=== PATIENT | male | born 1960 | race Caucasian/White ===

== ENCOUNTER → 2023-03-17 | Outpatient (CLI) | payer MEDICAID, SELFPAY ==
--- NOTE | 2023-03-17 13:52 | CDU_ITS ---
Reason For Study: Carotid Bruit Rt. Velocities/BP Lt. Velocities/BP Prox CCA 103/25 cm/sec. Prox CCA 120/25 cm/sec. Mid CCA 108/25 cm/sec. Mid CCA 131/32 cm/sec. Dist CCA 105/33 cm/sec. Dist CCA 120/32 cm/sec. Prox ICA 58/15 cm/sec. Prox ICA 96/28 cm/sec. Mid ICA 88/25 cm/sec. Mid ICA 134/41 cm/sec. Dist ICA 86/33 cm/sec. Dist ICA 140/45 cm/sec. Rt. ICA/CCA = 0.8. Lt. ICA/CCA = 1.1. Prox ECA 113/25 cm/sec. Prox ECA 156/25 cm/sec. Rt. Vert. 45/12 cm/sec. Lt. Vert. 86/25 cm/sec. Right Extracranial There is heterogeneous, irregular atherosclerotic plaque noted in the right common carotid artery. There is heterogeneous, smooth atherosclerotic plaque noted in the right internal carotid artery. There is no significant atherosclerotic plaque noted in the right external carotid artery. Antegrade flow is noted in the right vertebral artery. Left Extracranial There is heterogeneous, smooth atherosclerotic plaque noted in the left common carotid artery. There is heterogeneous, irregular atherosclerotic plaque noted in the left internal carotid artery. The left internal carotid artery is very tortuous. There is no significant atherosclerotic plaque noted in the left external carotid artery. Antegrade flow is noted in the left vertebral artery. Procedure Carotid Duplex 23156. This is a Carotid Duplex examination using B-mode, color flow and specral Doppler. Exam performed in department. VL/Carotid Duplex Ultrasound Interpretation Summary Mild (<50%) stenosis right extracranial internal carotid. Moderate (50-69%) stenosis left extracranial internal carotid. Patent and antegrade vertebrals bilaterally. Ordering Physician: Smitha Gross Referring Physician: Renuka Rocha Performed By: Peri Delgado, RDCS, RVT
== END | disposition home or self-care (01) ==
LOC: CVS 13:51
PROVIDERS: PCP Nurse Practitioner Family; Referring Provider Physician Assistant; Visit Provider Physician Assistant
DX: R09.89 Other specified symptoms and signs involving the circulatory and respiratory systems (principal)
CPT/HCPCS: 93880

== ENCOUNTER → 2023-05-26 | Outpatient (CLI) | payer MEDICAID, SELFPAY ==
--- NOTE | 2023-05-26 10:34 | ART_ITS ---
Reason For Study: CLAUDICATION Procedure A bilateral lower extremity continuous wave Doppler with analog waveform analysis,segmental pressures,and ankle brachial indexes with exercise. EXERCISED PT5 MIN @ 2.0 MPH @ 5% INCLINE. @ 1 MIN PT, C/O RT THIGH TIGHTNESS. @ 3;30 MIN, PT C/O BILATERAL THIGH TIGHTNESS. Left Segmental Pressures Left brachial= 125mmHg. Left posterior tibial artery = 150mmHg. Left dorsalis pedis artery = 138mmHg. The left posterior tibial artery waveforms are triphasic. The left dorsalis pedis waveforms are triphasic. Right Segmental Pressures Right brachial= 127mmHg. Right posterior tibial artery = 152mmHg. Right dorsalis pedis artery = 146mmHg. The right posterior tibial artery waveforms are triphasic. The right dorsalis pedis waveforms are triphasic. Indices The right resting ankle brachial index is 1.20. The right ankle brachial index by the posterior tibial artery is 1.20. The right ankle brachial index by the dorsalis pedis is 1.15. The right ankle brachial index by the posterior tibial artery post exercise is 132. The right post exercise ankle brachial index is 1.01. The left resting ankle brachial index is 1.18. The left ankle brachial index by the posterior tibial artery is 1.18. The left ankle brachial index by the dorsalis pedis is 1.09. The left posterior tibial artery index post exercise is 130. The left post exercise ankle brachial index is 0.99. VL/Lower Ext Art Exam w/ Exercise Interpretation Summary Right FELIX 1.2, normal. Doppler/PVR waveforms of the right leg normal at rest. Right lower extremity exhibits normal response to exercise. Left FELIX 1.18, normal. Doppler/PVR waveforms of the left leg normal at rest. Left lower extremity exhibits normal response to exercise. Ordering Physician: Smitha Milton Referring Physician: [employer] Performed By: Cristina Leija RVT, RDCS
== END | disposition home or self-care (01) ==
LOC: CVS 10:33
PROVIDERS: PCP Nurse Practitioner Family; Referring Provider Physician Assistant; Visit Provider Physician Assistant
DX: I73.9 Peripheral vascular disease, unspecified (principal)
CPT/HCPCS: 93924

== ENCOUNTER → 2023-06-12 | Outpatient (CLI) | payer MEDICAID, SELFPAY ==
--- NOTE | 2023-06-12 10:36 | MRI_ITS ---
STUDY: MRI LUMBAR SPINE WITHOUT CONTRAST REASON FOR EXAM: Male, 63 years old. pain TECHNIQUE: Standardized fat and water weighted pulse sequences were obtained in the sagittal and axial planes. COMPARISON: Lumbar spine radiograph May 18, 2023 FINDINGS: T12-L1: Normal endplates. Normal disc height, hydration and morphology. Normal bilateral facet joints. Normal central canal and bilateral lateral recesses. Normal bilateral intervertebral neural foramina. Normal lumbar lordosis. There is no substantial scoliosis. Normal conus medullaris that terminates at the L1 level. L1-2: Normal endplates. Normal disc height, hydration and morphology. Normal bilateral facet joints. Normal central canal and bilateral lateral recesses. Normal bilateral intervertebral neural foramina. L2-3: Normal endplates. Normal disc height, hydration and morphology. Normal bilateral facet joints. Normal central canal and bilateral lateral recesses. Normal bilateral intervertebral neural foramina. L3-4: Normal endplates. Normal disc height, hydration and morphology. Normal bilateral facet joints. Normal central canal and bilateral lateral recesses. Normal bilateral intervertebral neural foramina. L4-5: Normal endplates. Normal disc height, hydration and morphology. Normal bilateral facet joints. Normal central canal and bilateral lateral recesses. Normal bilateral intervertebral neural foramina. L5-S1: Normal endplates. Normal disc height, hydration and morphology. Normal bilateral facet joints. Normal central canal and bilateral lateral recesses. Normal bilateral intervertebral neural foramina. Grade 1 subluxation. Bilateral pars defects. Normal visualized sacral ala. Normal visualized paraspinous soft tissue structures. MRI/Spine Lumbar (Routine) IMPRESSION: Grade 1 spondylolisthesis and spondylolysis L5-S1. Electronically Signed: Fracisco Monroy MD at 16:21 [facility] ,
== END | disposition home or self-care (01) ==
LOC: MRI 09:48
PROVIDERS: PCP Nurse Practitioner Family; Referring Provider Orthopaedic Surgery Orthopaedic Surgery of the Spine; Visit Provider Orthopaedic Surgery Orthopaedic Surgery of the Spine
DX: M43.06 Spondylolysis, lumbar region (principal)
CPT/HCPCS: 72148

== ENCOUNTER 2023-08-03 09:00 | Outpatient (RCR) | payer MEDICAID, SELFPAY ==
--- NOTE | 2023-06-28 09:18 | HP.PTEVAL ---
Patient's Visit Information Visit Information Visit Information: SHAUN HO Jr. is a 63 year old M referred to Physical Therapy by Dr. Cuong Garvin MD with a diagnosis of SPONDYOLISTHESESIS ,LUMBAR REGION ,[place]. Date of Evaluation: 06/28/23 Physical Therapist: Reza Hopkins, PT, Cert MDT, OCS Visit Plan Frequency: 2x /Week Duration: 4 Weeks Plan: PT INTERVETIONS POSTURAL EX'S ,LUMBAR FLEXION ,DLS ,POSTURE/BODY MECHANICS EDUCATION AND MODLITIES Subjective Subjective: This 63 y/o male presents physical therapy with lumbar pain radicular symptoms with left thigh. Patient has lumbar pain for ~ 25 years. Patient has had pain management past . Patient was referred to ortho Spine DR and recommended PT . Symmetrical lumbar anterior thigh .Aggravating factors bending ,walking , lifting and sitting and ADLS. Alleviating heat and TENS. Coughing/sneezing-. Bowel/bladder-. Pain affects sleeping. Patient had MRI and x-rays showed DDD and grade spondylothesis ,spondylolysis L5. Patient has no abnormal night pain. Patient symptoms affects QOL and function. Patient goals no pain. SOCIAL: VOACTION: retired. Pain Bilateral Back: Pain Intensity (Out of 10): 8 Pain Intensity Range: 10 Objective Objective: POSTURE: mild forward posture NEURO: c/o paresthesia/tingling thigh , reflexes L3-4,L4-5,L5-S1 1/3 GAIT: reciprocal pattern SYMMTRIES : align PALAPTION: unremarkable LUMBAR FLEXION: min loss ,extension min loss ,side glides min loss FLEXABILITY: hamstrings MIN MMT; quads/hams 4/5 ,hip flexion 4-/5v ,ankle 5/5 Special Tests L/S Slump test left side: Negative L/S Slump test right side: Negative L/S Left Straight Leg Raise: Negative L/S Right Straight Leg Raise: Negative Lumbar Standing: Flexion - Mechanical Response: No effect Lumbar Standing: Flexion - Symptoms During Testing: No effect Lumbar Standing: Flexion - Symptoms After Testing: No effect Lumbar Standing: Extension - Symptoms During Testing: Increases Lumbar Standing: Extension - Symptoms After Testing: No worse Lumbar Standing: Right Side Glides - Mechanical Response: No effect Lumbar Standing: Right Side [place] - Symptoms During Testing: No effect Lumbar Standing: Right Side [place] - Symptoms After Testing: No effect Lumbar Standing: Left Side [place] - Mechanical Response: No effect Lumbar Standing: Left Side [place] - Symptoms During Testing: No effect Lumbar Standing: Left Side [place] - Symptoms After Testing: No effect Balance/Special Test Scores Oswestry Low Back Score: 30 Goals Goal 1:: Patient to be I with HEP for back Goal Time Frame: 4-6 Weeks Goal 2:: Patient to improve posture/body mechanics 90% of time. Goal Time Frame: 4-6 Weeks Goal 3:: Patient to demonstrate 50% improved function and ADLS with less pain Goal Time Frame: 4-6 Weeks Goal 4:: Patient to improve lumbar ROM for function of recovery to toe shoes Goal Time Frame: 4-6 Weeks Goal 5:: Patient to improve back oswestry score by 5 points to improve QOL Goal Time Frame: 4-6 Weeks Rehabilitation Potential Physical Therapy Diagnosis: This patient has lumbar pain with numbness in anterior thigh with pain with positioning and motion testing thus affects function will benefit from skilled PT Rehabilitation Potential: Good Anticipated Interventions Patient/Client Instruction: Educate patient on: Condition and Plan of Care For the Purpose of:: To decrease pain, To increase ROM, To improve muscle performance and motor function, To improve ability to perform ADL's, To increase tolerance to activity/condition/position, To improve performance and independence with ADL's, To improve ability of physical actions for home/community/work/leisure, To decrease soft tissue restriction, To increase flexibility/ROM and To improve endurance Therapeutic Exercise to Include: Strength training, Power training, Postural training, Flexibilty training, Dynamic Lumbar Stabilization and Kathy Exercises For the Purpose of:: To decrease pain, To increase ROM, To improve muscle performance and motor function, To improve ability to perform ADL's, To increase tolerance to activity/condition/position, To improve ability of physical actions for home/community/work/leisure, To improve health of tissue, To decrease soft tissue restriction and To increase flexibility/ROM TENS: Yes IF ES: Yes Cryotherapy (ice pack, ice massage): Yes Thermo therapy (hot pack): Yes Ultrasound (thermal/non thermal): Yes For the Purpose of:: To decrease pain, To increase ROM, To improve nutrient delivery to tissue, To increase oxygenation perfusion, To improve health of tissue and To decrease soft tissue restriction Text: Thank you for the opportunity to evaluate your patient. For Medicare and Medicare HMO plans, please review the plan of care and approve it. It will need to be FAXED BACK to us at [phone] for Medicare purposes. For Medicare only, by signing this I certify the plan of care. Please let me know if there are questions or concerns regarding this plan of care. Physician Signature: Date:
--- NOTE | 2023-10-30 12:22 | HP.PTDCSUM ---
Discharge Summary D/C summary: It has been my pleasure to treat SHAUN HO Jr. referred by Dr. Cuong Garvin MD, with the diagnosis of SPONDYOLISTHESESIS ,LUMBAR REGION ,[place] for a total of 8 visit(s). Discharge Date: Please see the following information for a summary of their discharge status. Subjective Subjective: Doing okay Oxycodone Pain Bilateral Back: Pain Intensity (Out of 10): 0 Overall Improvement % Improvement: 70 Objective Objective/Function: POSTURE: mild forward posture NEURO: c/o paresthesia/tingling thigh , reflexes L3-4,L4-5,L5-S1 1/3 GAIT: reciprocal pattern SYMMTRIES : align PALAPTION: unremarkable LUMBAR FLEXION: min loss ,extension WFL ,side glides min loss FLEXABILITY: hamstrings MIN MMT; quads/hams 4/5 ,hip flexion 4-/5 ,ankle 5/5 Goals Goal 1:: Patient to be I with HEP for back Goal 2:: Patient to improve posture/body mechanics 90% of time. Goal 3:: Patient to demonstrate 50% improved function and ADLS with less pain Goal 4:: Patient to improve lumbar ROM for function of recovery to toe shoes Goal 5:: Patient to improve back oswestry score by 5 points to improve QOL Plan Plan: RTD D/C Information d/c sentence: If there are questions or concerns regarding this patient's physical therapy, please feel free to call me at [phone]. Thank you for the referral of this patient. Sincerely, Reza Hopkins, PT, Cert MDT, OCS Balance/Gait/Functional tests Balance/Special Test Scores Oswestry Low Back Score: 7 Improvement % Improvement: 70
== END 2023-08-03 19:00 | disposition home or self-care (01) ==
LOC: PT 09:00
PROVIDERS: PCP Nurse Practitioner Family; Visit Provider Orthopaedic Surgery Orthopaedic Surgery of the Spine
DX: M43.16 Spondylolisthesis, lumbar region (principal); G57.12 Meralgia paresthetica, left lower limb
CPT/HCPCS: 97110; 97162; 97530

== ENCOUNTER → 2024-04-22 | Outpatient (CLI) | payer MEDICAID, SELFPAY ==
--- NOTE | 2024-04-22 09:44 | CDU_ITS ---
Reason For Study: Carotid artery stenosis Rt. Velocities/BP Lt. Velocities/BP Prox CCA 83.4/22 cm/sec. Prox CCA 109.1/26.7 cm/sec. Mid CCA 91.9/24.8 cm/sec. Mid CCA 98.1/24.5 cm/sec. Dist CCA 84.4/21.1 cm/sec. Dist CCA 83.9/22.3 cm/sec. Prox ICA 62.6/21.1 cm/sec. Prox ICA 91.2/18.8 cm/sec. Mid ICA 69.2/24.8 cm/sec. Mid ICA 83.9/27.4 cm/sec. Dist ICA 53.2/21.1 cm/sec. Dist ICA 81.5/27.4 cm/sec. Rt. ICA/CCA = 0.75. Lt. ICA/CCA = 0.93. Prox ECA 59.8/11.6 cm/sec. Prox ECA 125.6/24.9 cm/sec. Rt. Vert. 39.4/10.2 cm/sec. Lt. Vert. 45.6/14.5 cm/sec. Right Extracranial There is heterogeneous, irregular atherosclerotic plaque noted in the right common carotid artery. There is heterogeneous, irregular atherosclerotic plaque noted in the right internal carotid artery. There is intimal thickening but no significant atherosclerotic plaque noted in the right external carotid artery. Antegrade flow is noted in the right vertebral artery. Left Extracranial There is homogeneous, smooth atherosclerotic plaque noted in the left common carotid artery. There is heterogeneous, irregular atherosclerotic plaque noted in the left internal carotid artery. The left internal carotid artery is very tortuous. There is intimal thickening but no significant atherosclerotic plaque noted in the left external carotid artery. Antegrade flow is noted in the left vertebral artery. Procedure Carotid Duplex [id number]. This is a Carotid Duplex examination using B-mode, color flow and specral Doppler. Exam performed in department. VL/Carotid Duplex Ultrasound Interpretation Summary Mild (<50%) stenosis right extracranial internal carotid. Mild (<50%) stenosis left extracranial internal carotid. Patent and antegrade vertebrals bilaterally. Ordering Physician: Smitha Milton Referring Physician: Edenilson Rocha Performed By: Diana Isaac RVT
== END | disposition home or self-care (01) ==
LOC: CVS 09:43
PROVIDERS: PCP Nurse Practitioner Family; Referring Provider Physician Assistant; Visit Provider Physician Assistant
DX: I65.23 Occlusion and stenosis of bilateral carotid arteries (principal); I77.9 Disorder of arteries and arterioles, unspecified
CPT/HCPCS: 93880

== ENCOUNTER → 2025-01-20 | Outpatient (CLI) | payer MEDICAID, SELFPAY | END | disposition home or self-care (01) | LOC: CVS 06:10 | PROVIDERS: PCP Nurse Practitioner Family; Referring Provider Nurse Practitioner Family; Visit Provider Nurse Practitioner Family | DX: R07.9 Chest pain, unspecified (principal); J84.10 Pulmonary fibrosis, unspecified; R42 Dizziness and giddiness; R60.0 Localized edema; G47.33 Obstructive sleep apnea (adult) (pediatric) | CPT/HCPCS: 78452; 93017; A9500; A4216; J2785 ==

== ENCOUNTER → 2025-06-18 | Outpatient (CLI) | payer MEDICAID, SELFPAY ==
--- NOTE | 2025-06-18 09:01 | MRI_ITS ---
PROCEDURE: SPINE LUMBAR (ROUTINE) 06/18/2025 REASON FOR EXAM: LUMBAR SPONDYLOSIS TECHNIQUE: Procedure Code: MRISPL Modality: MR Procedure: SPINE LUMBAR (ROUTINE) COMPARISON: MRI lumbar spine 06/12/2023 FINDINGS: For the purposes of this report, the most caudal rectangular vertebral body will be designated L5. The next most caudal trapezoidal shaped vertebral body will be designated S1. The intervening disc at the lumbosacral angle is designated L5-S1. The normal lumbar lordosis is maintained. The lumbar vertebral bodies are normal in height. Grade 1 L5-S1 anterolisthesis. Suspect bilateral L5 pars defects. The lumbar bone marrow signal is within normal limits. Multilevel disc desiccation. Multiple anterior osteophytes. Schmorl's node at the superior endplate of L4 vertebral body with associated perifocal bone marrow edema. There is no evidence of signal abnormality in the imaged distal spinal cord. The conus medullaris terminates at the level of L1-L2. T12-L1: No significant spinal canal stenosis or neural foraminal narrowing. L1-L2: Disc bulge. No significant spinal canal stenosis or neural foraminal narrowing. L2-L3: Disc bulge flattens the ventral thecal sac. Bilateral facet arthrosis and ligamentum flavum hypertrophy. No significant neural foraminal narrowing. L3-L4: Disc bulge flattens the ventral thecal sac. Bilateral facet arthrosis and ligamentum flavum hypertrophy. No significant neural foraminal narrowing. L4-L5: Disc bulge, bilateral facet arthrosis, and ligamentum flavum hypertrophy. Mild spinal canal stenosis. No significant neural foraminal narrowing. L5-S1: No significant spinal canal stenosis or neural foraminal narrowing. The posterior paraspinal muscles normal unremarkable. MRI/Spine Lumbar (Routine) IMPRESSION: Lumbar spondylosis without high-grade spinal canal or neural foraminal stenosis . Reading Location: [id number]
--- NOTE | 2025-06-18 10:46 | RAD_ITS ---
PROCEDURE: SHOULDER MIN 2 VIEWS 06/18/2025 REASON FOR EXAM: PAIN TECHNIQUE: Procedure Code: RADSH Modality: DX Procedure: SHOULDER MIN 2 VIEWS Left shoulder five views COMPARISON: None FINDINGS: There is no fracture or dislocation identified. The AC joint is aligned. Osteopenia is noted. There is no visible soft tissue abnormality. There is visible atherosclerosis. RAD/Shoulder min 2 Views IMPRESSION: No fracture or dislocation is identified. Reading Location: [facility]
--- NOTE | 2025-06-18 10:46 | RAD_ITS ---
PROCEDURE: SHOULDER MIN 2 VIEWS 06/18/2025 REASON FOR EXAM: PAIN TECHNIQUE: Procedure Code: RADSH Modality: DX Procedure: SHOULDER MIN 2 VIEWS Four views of the right shoulder COMPARISON: None FINDINGS: There is no fracture or dislocation identified. AC joint is aligned. Osteopenia is noted. There is no soft tissue abnormality. There is no visible atherosclerosis. RAD/Shoulder min 2 Views IMPRESSION: There is no fracture or dislocation identified. Reading Location: [facility]
--- NOTE | 2025-06-18 10:46 | RAD_ITS ---
PROCEDURE: HIPS B/L MIN 2 VIEWS W/ PELVIS 06/18/2025 REASON FOR EXAM: PAIN TECHNIQUE: Procedure Code: RADHPELP Modality: DX Procedure: HIPS B/L MIN 2 VIEWS W/ PELVIS Frontal view of the pelvis with two views of the right and left hip COMPARISON: None FINDINGS: The SI joints are aligned. The sacral foramina appear intact. The hip joint spaces appear maintained. Phleboliths are noted. Atherosclerotic calcifications are noted. RAD/Hips B/L min 2 views w/ Pelvis IMPRESSION: No fracture or dislocation is identified. Reading Location: [facility]
== END | disposition home or self-care (01) ==
LOC: MRI 08:49
PROVIDERS: PCP Nurse Practitioner Family; Referring Provider Anesthesiology; Visit Provider Anesthesiology
DX: M47.816 Spondylosis without myelopathy or radiculopathy, lumbar region (principal); M25.511 Pain in right shoulder; M25.552 Pain in left hip; M25.512 Pain in left shoulder; M25.551 Pain in right hip
CPT/HCPCS: 72148; 73030; 73521